=== PATIENT | male | born 1950 | race Caucasian/White ===

== ENCOUNTER → 2021-03-20 11:02 | Outpatient (BNVA) | payer MEDICARE, OTHER, SELFPAY | PROVIDERS: Family Provider Family Medicine; PCP Family Medicine; Visit Provider Surgery | DX: Z01.812 Encounter for preprocedural laboratory examination (principal); Z20.822 Contact with and (suspected) exposure to COVID-19 | CPT/HCPCS: 87635 ==

== ENCOUNTER 2021-03-26 08:57 | Day surgery (SDC) | payer MEDICARE, OTHER, SELFPAY ==
[2021-03-23 12:29] VITALS: BMI 25.1
--- NOTE | 2021-03-26 09:04 | ANES.PREANE2 ---
Pre-Anesthetic Assessment Pre-Anesthetic Assessment: Height/Weight: Height 1.8 m Weight 81.647 kg Preop Diagnosis: screening Proposed Procedure: Operation Date: 03/26/21 10:30 Proposed Procedures p Colonoscopy 33276 z12.11(Not Applicable) - Coleman Lopez MD Familial anesthetic complications: None Was Beta Petty taken within 24 hours: N/A Was Clonidine taken within 24 hours: N/A Last intake: > 8 hrs Social: Social History: No alcohol and No tobacco Exam: Pre-Anes Outpt Exam: alert, oriented x 3, clear to auscultation bilaterally and regular rate & rhythm Airway: Cervical ROM: WNL MP: 4 Dentition: Partials CV/HEM: CV/HEM: HTN Metabolic: Metabolic: DM and Thyroid Anesthetic Plan: ASA status: 2 Anesthesia: MAC Risk of > 500 ml blood loss (7ml/kg in children): No PFSH Anesthesia PFSH: Medical History (Updated 12/14/19 @ 13:12 by Coleman Lopez MD) Gout History of inguinal hernia History of kidney stones Hypertension Hypothyroidism Pre-diabetes Surgical History Status post left inguinal hernia repair Family History Other Cancer Hypertension Denies family history of Diabetes Anesthesia complication Bleeding disorder Social History Smoking and tobacco status: former smoker Alcohol intake: never Data Anesthesia Cardiac Studies: No Data to Display
[2021-03-26 09:33] VITALS: BP 161/97; PULSE 66; RESP 16; TEMP 36.7; O2SAT 97
[2021-03-26] MEDS: sodium chloride 0.9% 1,000 ML 30 ML IV (09:42)
[2021-03-26 09:47] LABS: Glucose Point of Care 102 mg/dL (70-110)
--- NOTE | 2021-03-26 10:30 | W.PM.OPSFHP ---
Same Day Surgery H&P Indication for Procedure/HPI DATE OF PROCEDURE: March 26, 2021 CHIEF COMPLAINT/INDICATIONFOR SURGICAL PROCEDURE: Screening colonoscopy PREOP DIAGNOSIS: screening colonoscopy PLANNED PROCEDRUE: Operation Date: 03/26/21 10:30 Proposed Procedures p Colonoscopy 21098 z12.11(Not Applicable) - Coleman Lopez MD Medications/Allergies* Home Medications Medication Instructions Recorded Confirmed Type allopurinol 300 mg tablet 300 mg PO DAILY 12/14/19 03/26/21 History levothyroxine 150 mcg capsule 150 mcg PO DAILY 12/14/19 03/26/21 History metformin 850 mg tablet 850 mg PO DAILY 12/14/19 03/26/21 History naproxen 500 mg tablet 500 mg PO DAILY 12/14/19 03/26/21 History nifedipine 60 mg tablet,extended 60 mg PO DAILY 12/14/19 03/26/21 History release omega [id number] oil [Fish Oil] 1 cap PO DAILY 03/23/21 03/26/21 History Allergies/Adverse Reactions Allergy/AdvReac Type Severity Reaction Status Date / Time codeine AdvReac gastric Verified 03/23/21 12:23 upset Current Medications: Generic Name Dose Route Start Last Admin Trade Name Freq PRN Reason Stop Dose Admin Sodium Chloride 1,000 mls @ 30 mls/hr 03/26/21 09:15 03/26/21 09:42 Sodium Chloride 0.9% IV 03/27/21 09:14 30 mls/hr .Q24H ZEN Administration Pertinent History/Comorbid Conditions* Medical History (Updated 12/14/19 @ 13:12 by Coleman Lopez MD) Gout History of inguinal hernia History of kidney stones Hypertension Hypothyroidism Pre-diabetes Surgical History (Updated 12/14/19 @ 09:42 by Coleman Lopez MD) Status post left inguinal hernia repair Family History (Updated 12/14/19 @ 09:30 by Moise Fleming) Cancer Hypertension Denies family history of Diabetes Anesthesia complication Bleeding disorder Social History Smoking and tobacco status: former smoker Alcohol intake: never Pertinent Exam Findings alert, oriented x 3 and regular rate & rhythm Recommendations Surgery/Procedure today Coding Level of Care Code Acute 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
[2021-03-26 11:44] VITALS: BP 114/78; PULSE 58; RESP 18; TEMP 36.3; O2SAT 95
[2021-03-26 11:59] VITALS: BP 108/75; PULSE 57; RESP 18; O2SAT 96
--- NOTE | 2021-03-26 14:45 | ANE.PACU2 ---
Inpatient post-anesthesia follow up: Airway intact: Yes Vital signs: Temperature 97.4 F Pulse Rate 57 Respiratory Rate 18 Blood Pressure 108/75 Pulse Oximetry 96 Oxygen Delivery Me thod Room Air Oxygen Flow Rate Fraction of Inspir ed Oxygen Hydration adequate: Yes Nausea and vomiting: No Pain level: 2 Mental status: Baseline
== END 2021-03-26 12:04 | disposition home or self-care (01) ==
PROVIDERS: Family Provider Family Medicine; PCP Family Medicine; Visit Provider Surgery
PROC: 0DJD8ZZ Inspection of Lower Intestinal Tract, Via Natural or Artificial Opening Endoscopic (ICD-10-PCS; CPT 45378; principal; 2021-03-26 10:30)
DX: Z12.11 Encounter for screening for malignant neoplasm of colon (principal); K57.30 Diverticulosis of large intestine without perforation or abscess without bleeding; K64.8 Other hemorrhoids; I10 Essential (primary) hypertension; E03.9 Hypothyroidism, unspecified; E11.9 Type 2 diabetes mellitus without complications; Z79.84 Long term (current) use of oral hypoglycemic drugs; Z82.49 Family history of ischemic heart disease and other diseases of the circulatory system; Z87.891 Personal history of nicotine dependence
CPT/HCPCS: 36416; 82962; 96360; 96361; G0121; J2704; J7030

== ENCOUNTER → 2022-12-14 09:15 | Outpatient (BNVA) | payer MEDICARE, OTHER, SELFPAY | PROVIDERS: Family Provider Family Medicine; PCP Family Medicine; Visit Provider Family Medicine | DX: E11.9 Type 2 diabetes mellitus without complications (principal); E03.9 Hypothyroidism, unspecified; I10 Essential (primary) hypertension; N40.0 Benign prostatic hyperplasia without lower urinary tract symptoms | CPT/HCPCS: 80053; 83036; 84153; 84443; 85025 ==

== ENCOUNTER 2023-06-07 09:58 | Outpatient (CLI) | payer MEDICARE, OTHER, SELFPAY ==
--- NOTE | 2023-06-07 10:04 | MR_ITS ---
WS: [id number] MRI LUMBAR SPINE NONCONTRAST HISTORY: VERTEBROGENIC LOW BACK PAIN COMPARISON: None available. TECHNIQUE: Sagittal and axial multisequence imaging is submitted. Mild curvature lumbar spine. Mild straightening of the posterior lumbar vertebral bodies. Advanced de generative disc disease at L3-4, L4-5 and L5-S1. Loss of the normal endplates with disc space narrowi ng and osteophytosis. Reactive marrow edema in the L3 and L4 vertebral bodies and to a lesser extent L5. Conus terminates normally at L1-2 disc level. L1-L2: Mild annular disc bulging and osteophytic ridging. Moderate facet joint arthritis. Mild bilate ral foraminal stenosis. L2-L3: Annular disc bulging with osteophytic ridging. Severe bilateral ligame ntum flavum and facet arthritis, greater on the LEFT. Encroachment upon the thecal sac. Moderate to s evere central, bilateral subarticular recess and mild foraminal stenosis L3-L4: Diffuse osteophytic ridging, annular disc bulging with severe ligamentum flavum and facet arth ritis. Severe central, bilateral subarticular recess and foraminal stenosis. There is contact and def ormity of the L3 and L4 nerve roots. L4-L5: Severe annular disc bulging, osteophytic ridging and facet arthritis. Severe central, bilatera l subarticular recess and foraminal stenosis. L5-S1: Mild annular disc bulging encroaching upon the traversing S1 nerve roots. Moderate facet arthr itis. Mild foraminal stenosis Bilateral renal cysts. IMPRESSION: 1. Multilevel advanced degenerative disc, facet and osteophytic disease at L2-3, L3-4, L4-5 and L5-S1 . 2. L2-3: Moderate to severe central, bilateral subarticular recess and foraminal stenosis. Severe lig amentum flavum hypertrophy greatest on the LEFT. 3. L3-4 and L4-5: Severe central, bilateral subarticular recess and foraminal stenosis. Marked encroa chment upon the nerve roots bilaterally. 4. L1-2 L5-S1: Mild bilateral foraminal stenosis.
--- NOTE | 2023-06-07 10:04 | XRR_ITS ---
PROCEDURE INFORMATION: Exam: XR Lumbosacral Spine Exam date and time: 06/07/2023 10:40 AM Age: 72 years old Clinical indication: Low back pain; Additional info: Vertebrogenic low back pain TECHNIQUE: Imaging protocol: Radiologic exam of the lumbosacral spine. Views: 2 or 3 views. COMPARISON: No relevant prior studies available. FINDINGS: Bones/joints: The lumbar spine demonstrates a straightened lordotic curvature. No spondylolisthesis identified. Mild anterior wedging of the T12 and L1 vertebral bodies, less than 25% height loss. The remaining vertebral bodies maintain normal height. Multilevel loss of intervertebral disc height with endplate degenerative changes most significant at L4-L5 and L5-S1. Multilevel facet arthropathy. Likely neural foraminal narrowing at L4-L5 and L5-S1. Soft tissues: Unremarkable. XR/XR lumbar spine f/e only [id number] IMPRESSION: 1. Ld anterior wedging of the T12 and L1 vertebral bodies, less than 25% height loss. The remaining vertebral bodies maintain normal height. 2. Lower lumbar degenerative disc disease and facet arthropathy with likely neural foraminal narrowing.
== END 2023-06-07 09:59 | disposition home or self-care (01) ==
PROVIDERS: PCP Family Medicine; Visit Provider Nurse Practitioner
DX: M51.37 Other intervertebral disc degeneration, lumbosacral region (principal); M47.817 Spondylosis without myelopathy or radiculopathy, lumbosacral region; M25.78 Osteophyte, vertebrae; M48.07 Spinal stenosis, lumbosacral region; M54.51 Vertebrogenic low back pain
CPT/HCPCS: 72120; 72148

== ENCOUNTER → 2023-08-03 09:28 | Outpatient (BNVA) | payer MEDICARE, OTHER, SELFPAY | PROVIDERS: PCP Family Medicine; Visit Provider Family Medicine | DX: E03.9 Hypothyroidism, unspecified (principal); Z01.818 Encounter for other preprocedural examination; Z00.00 Encounter for general adult medical examination without abnormal findings | CPT/HCPCS: 83036 ==

== ENCOUNTER → 2024-01-04 09:07 | Outpatient (BNVA) | payer MEDICARE, OTHER, SELFPAY | PROVIDERS: PCP Family Medicine; Visit Provider Family Medicine | DX: I10 Essential (primary) hypertension (principal); E03.9 Hypothyroidism, unspecified; E11.9 Type 2 diabetes mellitus without complications; Z00.00 Encounter for general adult medical examination without abnormal findings; M46.1 Sacroiliitis, not elsewhere classified; R73.03 Prediabetes; R97.20 Elevated prostate specific antigen [PSA]; R53.83 Other fatigue; N18.9 Chronic kidney disease, unspecified | CPT/HCPCS: 80053; 80061; 83036; 84153; 84443; 85025 ==

== ENCOUNTER → 2024-01-11 10:45 | Outpatient (BNVA) | payer MEDICARE, OTHER, SELFPAY | PROVIDERS: PCP Family Medicine; Visit Provider Family Medicine | DX: I10 Essential (primary) hypertension (principal) | CPT/HCPCS: 84550 ==

== ENCOUNTER → 2025-01-16 08:34 | Outpatient (BNVA) | payer MEDICARE, OTHER, SELFPAY | PROVIDERS: PCP Family Medicine; Visit Provider Family Medicine | DX: I10 Essential (primary) hypertension (principal); E11.9 Type 2 diabetes mellitus without complications; E03.9 Hypothyroidism, unspecified; Z00.00 Encounter for general adult medical examination without abnormal findings | CPT/HCPCS: 80053; 80061; 83036; 84443; 84550; 85025 ==

== ENCOUNTER → 2025-06-16 10:28 | Outpatient (BNVA) | payer MEDICARE, OTHER, SELFPAY | PROVIDERS: PCP Family Medicine; Visit Provider Registered Nurse Neonatal Intensive Care | DX: R30.9 Painful micturition, unspecified (principal) | CPT/HCPCS: 81000; 87086 ==